=== PATIENT | female | born 1940 | race Caucasian/White ===

== ENCOUNTER 2024-03-30 14:51 | Inpatient (IN) | payer MEDICARE, MEDICAID ==
[~2024-03-30] VITALS: Ht 162.6 cm; Wt 80.2 kg
[2024-03-30] VITALS (9 sets, daily range): BP systolic 101–145; BP diastolic 43–67; PULSE 66–77; RESP 16–18; TEMP 97.1–98.2; O2SAT 97
[~2024-03-30 14:51] MED LIST: AMLO1TAB12 PO; ATOR20TA PO; METO25XL PO
[2024-03-30 15:38] LABS: BASOPHILS % (AUTO) 0.4 % (0.0-2.0); EOSINOPHILS % (AUTO) 1.5 % (1.0-6.0); LYMPHOCYTES # (AUTO) 0.8 K/uL (1.0-4.8); LYMPHOCYTES % (AUTO) 10.5 % (22.0-44.0); MEAN CORPUSCULAR HEMOGLOBIN 28.5 pg (26.0-34.0); MEAN CORPUSCULAR HGB CONC 31.1 G/dL (31.0-37.0); MEAN CORPUSCULAR VOLUME 92 fL (80-100); MONOCYTES # (AUTO) 0.7 K/uL (0.1-1.0); MONOCYTES % (AUTO) 9.3 % (2.0-9.0); NEUTROPHILS # (AUTO) 5.7 K/uL (1.8-7.7); NEUTROPHILS % (AUTO) 78.3 % (40.0-70.0); PLATELET COUNT (AUTO) 144 K/uL (150-450); RED BLOOD CELL COUNT(AUTO) 2.24 MIL/uL (4.00-5.20); RED CELL DISTRIBUTION WIDTH 15.1 % (11.5-14.5); WHITE BLOOD COUNT (AUTO) 7.2 K/uL (4.5-11.0)
[2024-03-30 15:41] LABS: HEMATOCRIT 20.5 % (36-46); HEMOGLOBIN 6.4 g/dL (12.0-16.0)
[2024-03-30 15:45] LABS: ANION GAP 9 mmol/L (8-16); CARBON DIOXIDE 29 mmol/L (22-29); CHLORIDE 106 mmol/L (98-107); GLOMERULAR FILTR. RATE CALC 31 mL/min (>60); GLUCOSE,RANDOM 141 mg/dL (70-110); POTASSIUM 3.7 mmol/L (3.5-5.1); SODIUM SERUM 144 mmol/L (136-145); UREA NITROGEN, BLOOD 47 mg/dL (7-18)
[2024-03-30 15:52] LABS: TROPONIN I-HIGH SENSITIVITY 803 ng/L (<51)
[2024-03-30] MEDS: ASPIRIN 325 MG TABLET PO ONE (16:00)
[2024-03-30] MEDS: NITROGLYCERIN 0.4 MG SUBLINGUAL TABLET #25 SL ONE (16:00)
[2024-03-30] MEDS: PANTOPRAZOLE SODIUM 40 MG DR TABLET PO ONE (16:06)
[2024-03-30] MEDS: NITROGLYCERIN 2% (1 GM=INCH) OINTMENT PACKET TP ONE (16:08)
[2024-03-30 16:17] LABS: % IRON SATURATION 8.2 % (22-44)
[2024-03-30] MEDS ORDERED: ONDANSETRON HCL 4 MG/2 ML VIAL IVP PRN (16:30)
[2024-03-30] MEDS: ATORVASTATIN CALCIUM 40 MG TABLET PO SCH (17:28)
[2024-03-30] MEDS: SODIUM CHLORIDE 0.9% 1,000 ML IV ONE (20:09)
[2024-03-30 20:21] LABS: HEMATOCRIT 22.2 % (36-46)
[2024-03-30] MEDS: PANTOPRAZOLE SODIUM 40 MG/VIAL IVP SCH (20:32)
[2024-03-30 20:39] LABS: TROPONIN I-HIGH SENSITIVITY 543 ng/L (<51)
[2024-03-30] MEDS: DOCUSATE SODIUM 100 MG CAPSULE PO SCH (20:42)
[2024-03-30 20:54] LABS: APPEARANCE,URINE CLEAR (CLEAR); BILIRUBIN,URINE NEGATIVE (NEGATIVE); COLOR,URINE COLORLESS (YELLOW); GLUCOSE, URINE (UA) NEGATIVE (NEGATIVE); KETONES,URINE NEGATIVE (NEGATIVE); LEUKOCYTE ESTERASE ,URINE NEGATIVE (NEGATIVE); NITRATE,URINE NEGATIVE (NEGATIVE); OCCULT BLOOD,URINE NEGATIVE (NEGATIVE); PH,URINE 6.5 (5.0-8.0); PROTEIN,URINE NEGATIVE (NEGATIVE); SPECIFIC GRAVITIY, URINE 1.013 (1.003-1.030); UROBILINOGEN,URINE <=1.0 mg/dL (<=1.0)
[2024-03-31] VITALS (7 sets, daily range): BP systolic 122–143; BP diastolic 53–74; PULSE 57–67; RESP 18–19; TEMP 97.6–98.1; O2SAT 97–99
[2024-03-31 11:56] LABS: BASOPHILS % (AUTO) 0.4 % (0.0-2.0); HEMATOCRIT 27.4 % (36-46); HEMOGLOBIN 8.9 g/dL (12.0-16.0); LYMPHOCYTES # (AUTO) 1.1 K/uL (1.0-4.8); LYMPHOCYTES % (AUTO) 15.2 % (22.0-44.0); MEAN CORPUSCULAR HEMOGLOBIN 29.2 pg (26.0-34.0); MEAN CORPUSCULAR HGB CONC 32.3 G/dL (31.0-37.0); MEAN CORPUSCULAR VOLUME 90 fL (80-100); MONOCYTES # (AUTO) 0.7 K/uL (0.1-1.0); MONOCYTES % (AUTO) 9.8 % (2.0-9.0); NEUTROPHILS # (AUTO) 5.1 K/uL (1.8-7.7); NEUTROPHILS % (AUTO) 72.6 % (40.0-70.0); PLATELET COUNT (AUTO) 138 K/uL (150-450); RED BLOOD CELL COUNT(AUTO) 3.04 MIL/uL (4.00-5.20)
[2024-03-31 12:06] LABS: CREATININE 1.09 mg/dL (0.60-1.30); POTASSIUM 4.4 mmol/L (3.5-5.1)
[2024-04-01 04:03] VITALS: BP 125/92; PULSE 63; RESP 18; TEMP 97.6; O2SAT 99
[2024-04-01 09:14] VITALS: BP 134/57; PULSE 64; RESP 19; TEMP 98.1; O2SAT 98
[2024-04-01 11:53] VITALS: BP_SYST 137; BP_SYST 37; BP_DIAS 56; PULSE 65; RESP 18; TEMP 98; O2SAT 97
[2024-04-01 15:29] VITALS: BP 147/79; PULSE 63; RESP 19; TEMP 97.7; O2SAT 99
[2024-04-01] MEDS: ACETAMINOPHEN 325 MG TABLET PO PRN (20:07)
[2024-04-01 20:14] VITALS: BP 132/59; PULSE 66; RESP 18; TEMP 97.9; O2SAT 99
[2024-04-02 00:14] VITALS: BP 142/70; PULSE 64; RESP 17; TEMP 97.8; O2SAT 98
[2024-04-02 04:58] VITALS: BP 130/54; PULSE 59; RESP 18; TEMP 97.8; O2SAT 100
[2024-04-02 06:58] LABS: CALCIUM, TOTAL 8.3 mg/dL (8.8-10.5); CREATININE 1.11 mg/dL (0.60-1.30)
[2024-04-02 07:06] LABS: BASOPHILS % (AUTO) 0.7 % (0.0-2.0); EOSINOPHILS % (AUTO) 2.8 % (1.0-6.0); HEMATOCRIT 27.2 % (36-46); HEMOGLOBIN 8.8 g/dL (12.0-16.0); LYMPHOCYTES % (AUTO) 14.6 % (22.0-44.0); MEAN CORPUSCULAR HEMOGLOBIN 29.1 pg (26.0-34.0); MEAN CORPUSCULAR HGB CONC 32.3 G/dL (31.0-37.0); MEAN CORPUSCULAR VOLUME 90 fL (80-100); MONOCYTES # (AUTO) 0.7 K/uL (0.1-1.0); MONOCYTES % (AUTO) 9.9 % (2.0-9.0); NEUTROPHILS # (AUTO) 5.1 K/uL (1.8-7.7); PLATELET COUNT (AUTO) 130 K/uL (150-450); RED BLOOD CELL COUNT(AUTO) 3.02 MIL/uL (4.00-5.20); RED CELL DISTRIBUTION WIDTH 15.9 % (11.5-14.5); WHITE BLOOD COUNT (AUTO) 7.1 K/uL (4.5-11.0)
[2024-04-02 07:18] LABS: POTASSIUM 4.9 mmol/L (3.5-5.1)
[2024-04-02 09:09] VITALS: BP 158/57; PULSE 62; RESP 17; TEMP 98.1; O2SAT 97
[2024-04-02] MEDS ORDERED: PANT-31 PO (10:59)
[2024-04-02] MEDS ORDERED: FERR325T27 PO (11:00)
[2024-04-02 12:30] VITALS: BP 153/59; PULSE 72; RESP 18; TEMP 98.2; O2SAT 98
== END 2024-04-02 13:50 | disposition home or self-care (01) | DRG 281 ==
LOC: EMS 15:22 → EDH 16:25 → 5S 23:20
PROVIDERS: ADMIT Internal Medicine; ATTEND Internal Medicine
PROC: 30233N1 Transfusion of Nonautologous Red Blood Cells into Peripheral Vein, Percutaneous Approach (ICD-10-PCS; principal; 2024-03-30)
DX: I21.4 Non-ST elevation (NSTEMI) myocardial infarction (principal); N17.9 Acute kidney failure, unspecified; S00.83XA Contusion of other part of head, initial encounter; D64.9 Anemia, unspecified; I25.10 Atherosclerotic heart disease of native coronary artery without angina pectoris; I35.0 Nonrheumatic aortic (valve) stenosis; I50.9 Heart failure, unspecified; I11.0 Hypertensive heart disease with heart failure; E78.00 Pure hypercholesterolemia, unspecified; Z85.528 Personal history of other malignant neoplasm of kidney; Z63.4 Disappearance and death of family member; Z90.49 Acquired absence of other specified parts of digestive tract; W18.39XA Other fall on same level, initial encounter; Y93.89 Activity, other specified; Y92.89 Other specified places as the place of occurrence of the external cause; Y99.8 Other external cause status
CPT/HCPCS: 36430; 70450; 71045; 80048; 81003; 82271; 83540; 83550; 84484; 85014; 85018; 85025; 86850; 86900; 86901; 86923; 93005; 93306; 96360; 99291; J2470; P9016; 36415-L1; 36415-TC